=== PATIENT | female | born 1940 | race African-American/Black ===

== ENCOUNTER 2016-11-28 23:03 | Emergency (ER) | payer OTHER, BC ==
[2016-11-28 23:22] VITALS: TEMP 97.6; BMI 29.2
--- NOTE | 2016-11-29 01:19 | PDOC ---
History of Present Illness - General History Source: Patient Exam Limitations: No Limitations - History of Present Illness Initial Comments: 11/29/16 02:58 The patient is a 76-year-old female, with significant past medical history of HTN, gerd, and arthritis, who presents to the ED with 5 hours of left-sided chest pain. The patient states that the pain was a 20/20 when it initially came on but now she rates the pain a 8/10 in severity. She describes the pain as sharp in sensation. On exam, the pain is reproducible and worsened with movement. The patient saw her Inspector And Sorter, Dr. Sotelo, last month and everything appeared to be normal. She is scheduled for a stress test on 12/17. Last stress test was done a few years ago. She denies any shortness of breath. She denies any fever, chills, nausea, vomiting, diarrhea, or abdominal pain. PCP: Dr. Maria Fernanda Bateman Inspector And Sorter: Dr. Sotelo Surgical Hx: back surgery for stenosis and herniated discs, bunion surgery. Social Hx: Reports occasional alcohol use. Pt recently quit smoking a year ago. She denies any drug use. Allergies: None <Martha Linares - Last Filed: 11/29/16 03:00> <Bashir Alvarez - Last Filed: 11/29/16 04:37> - General Chief Complaint: Pain Stated Complaint: CHEST PAIN Time Seen by Provider: 11/29/16 01:18 Past History <Martha Linares - Last Filed: 11/29/16 03:00> - Past Medical History Anemia: No Asthma: No Cancer: No Cardiac Disorders: Yes CVA: Yes (NO RESIDUAL SYMPTOMS) COPD: No CHF: Yes Dementia: No Diabetes: No GI Disorders: Yes (GERD, DIVERTICULOSIS, DIVERTICULITIS, HIATAL HERNIA) Disorders: No HTN: Yes Hypercholesterolemia: Yes Kidney Stones: Yes Liver Disease: Yes (HEPATIC CYST) Seizures: No Thyroid Disease: Yes (MULTIPLE NODULES) - Surgical History Abdominal Surgery: Yes Appendectomy: No Cardiac Surgery: No Cholecystectomy: No Lung Surgery: No Neurologic Surgery: Yes (NECK SX) Orthopedic Surgery: Yes (BACK SX FOR SPINAL STENOSIS) - Immunization History Immunization Up to Date: Yes - Psycho/Social/Smoking Cessation Hx Anxiety: No Suicidal Ideation: No Smoking History: Former smoker Have you smoked in the past 12 months: No If you are a former smoker, when did you quit?: 40yrs Information on smoking cessation initiated: No Hx Alcohol Use: No Drug/Substance Use Hx: No Substance Use Type: None Hx Substance Use Treatment: No <Bashir Alvarez - Last Filed: 11/29/16 04:37> - Past Medical History Allergies/Adverse Reactions: Allergies Allergy/AdvReac Type Severity Reaction Status Date / Time No Known Drug Allergies Allergy Verified 11/28/16 23:19 Home Medications: Ambulatory Orders Furosemide [Lasix -] 40 mg PO DAILY 06/10/12 Potassium Chloride [K-Dur -] 20 meq PO DAILY 06/10/12 Simvastatin [Zocor -] 10 mg PO HS 06/10/12 Losartan Potassium 50 mg PO DAILY 10/31/14 Amlodipine Besylate 10 mg PO DAILY 03/15/16 Ranitidine [Zantac -] 150 mg PO BID #0 03/15/16 Aspirin [ASA -] 81 mg PO DAILY 07/05/16 Folic Acid/Mv,Fe,Min [One Daily Maximum Tablet] 1 each PO DAILY 07/05/16 Metoprolol Succinate [Toprol Xl] 50 mg PO DAILY 07/05/16 Cholecalciferol (Vitamin D3) [Vitamin D-400] 400 unit PO DAILY 07/08/16 Review of Systems - Review of Systems Able to Perform ROS?: Yes Comments:: 11/29/16 03:00 GENERAL/CONSTITUTIONAL: No fever or chills. No weakness. HEAD, EYES, EARS, NOSE AND THROAT: No change in vision. No ear pain or discharge. No sore throat. CARDIOVASCULAR: +Chest pain. No shortness of breath. RESPIRATORY: No cough, wheezing, or hemoptysis. GASTROINTESTINAL: No nausea, vomiting, diarrhea or constipation. GENITOURINARY: No dysuria, frequency, or change in urination. MUSCULOSKELETAL: No joint or muscle swelling or pain. No neck or back pain. SKIN: No rash NEUROLOGIC: No headache, vertigo, loss of consciousness, or change in strength/ sensation. ENDOCRINE: No increased thirst. No abnormal weight change. HEMATOLOGIC/LYMPHATIC: No anemia, easy bleeding, or history of blood clots. ALLERGIC/IMMUNOLOGIC: No hives or skin allergy. <Martha Linares - Last Filed: 11/29/16 03:00> *Physical Exam - Vital Signs Last Vital Signs Temp Pulse Resp BP Pulse Ox 97.6 F 57 L 20 146/75 97 11/28/16 23:19 11/29/16 01:20 11/29/16 01:20 11/29/16 01:20 11/29/16 01:20 - Physical Exam Comments: 11/29/16 03:02 GENERAL: Awake, alert, and fully oriented, in no acute distress HEAD: No signs of trauma EYES: PERRLA, EOMI, sclera anicteric, conjunctiva clear ENT: Auricles normal inspection, hearing grossly normal, nares patent, oropharynx clear without exudates. Moist mucosa NECK: Normal ROM, supple, no lymphadenopathy, JVD, or masses LUNGS: Breath sounds equal, clear to auscultation bilaterally. No wheezes, and no crackles HEART: Regular rate and rhythm, normal S1 and S2, no murmurs, rubs or gallops. + Chest pain is reproducible. ABDOMEN: Soft, nontender, normoactive bowel sounds. No guarding, no rebound. No masses EXTREMITIES: Normal range of motion, no edema. No clubbing or cyanosis. No cords, erythema, or tenderness NEUROLOGICAL: Cranial nerves II through XII grossly intact. Normal speech, normal gait SKIN: Warm, Dry, normal turgor, no rashes or lesions noted. <Martha Linares - Last Filed: 11/29/16 03:00> - Vital Signs Last Vital Signs Temp Pulse Resp BP Pulse Ox 97.6 F 63 20 136/78 96 11/28/16 23:19 11/28/16 23:19 11/28/16 23:19 11/28/16 23:19 11/28/16 23:19 <Bashir Alvarez - Last Filed: 11/29/16 04:37> ED Treatment Course - LABORATORY CBC & Chemistry Diagram: 11/29/16 02:11 11/29/16 02:11 - ADDITIONAL ORDERS Additional order review: Laboratory Results 11/29/16 02:11 INR 1.14 11/29/16 02:11 RBC 4.78 MCV 71.4 L MCHC 31.4 L RDW 15.8 H MPV 8.2 Neutrophils % 57.7 Lymphocytes % 34.0 Monocytes % 6.1 Eosinophils % 1.6 Basophils % 0.6 - Medications Given in the ED: ED Medications Discontinued Medications Generic Name Dose Route Start Last Admin Trade Name Mary PRN Reason Stop Dose Admin Ketorolac Tromethamine 15 mg 11/29/16 01:54 11/29/16 02:29 Toradol Injection - IVPUSH 11/29/16 01:55 15 mg ONCE ONE Administration <Martha Linares - Last Filed: 11/29/16 03:00> - LABORATORY CBC & Chemistry Diagram: 11/29/16 02:11 11/29/16 02:11 <Bashir Alvarez - Last Filed: 11/29/16 04:37> *DC/Admit/Observation/Transfer - Attestations Scribe Attestion: 11/29/16 03:02 Documentation prepared by Martha Linares, acting as medical imaging technologist for Bashir Alvarez MD. <Martha Linares - Last Filed: 11/29/16 03:00> - Discharge Dispostion Admit: No - Attestations Physician Attestion: 11/29/16 01:18 I, Dr. Bashir Alvarez, attest that this document has been prepared under my direction and personally reviewed by me in its entirety. I further attest, that it accurately reflects all work, treatment, procedures and medical decision -making performed by me. <Bashir Alvarez - Last Filed: 11/29/16 04:37> Diagnosis at time of Disposition: Musculoskeletal pain, Atypical chest pain - Discharge Dispostion Disposition: HOME Condition at time of disposition: Good - Referrals Referrals: Maria Fernanda Machado MD [Primary Care Provider] - - Patient Instructions Printed Discharge Instructions: DI for Atypical Chest Pain Additional Instructions: Tylenol for pain. Return to us if worse or new symptoms. Follow up with your regular doctor next week. Best- Dr. Bashir Alvarez
[2016-11-29 01:21] VITALS: BP 146/75; PULSE 57
[2016-11-29] MEDS ORDERED: KETOROLAC TROMETHAMINE 15 MG/ML VIAL IVPUSH ONE (01:54)
[2016-11-29] MEDS ORDERED: KETOROLAC TROMETHAMINE 15 MG/ML VIAL ONE (02:25)
[2016-11-29 02:29] LABS: BASOPHIL 0.6 % (0-2.0); EOSINOPHIL 1.6 % (0-4.5); MCH 22.4 pg (25.7-33.7); MCHC 31.4 g/dl (32.0-36.0); MEAN CELL VOLUME 71.4 fl (80-96); MEAN PLT VOLUME 8.2 fl (7.5-11.1); NEUTROPHILS 57.7 % (42.8-82.8); PLATELET COUNT 207 K/MM3 (134-434); RDW 15.8 % (11.6-15.6); WHITE BLOOD COUNT 5.7 K/mm3 (4.0-10.0)
[2016-11-29 02:48] LABS: INR 1.14 (0.82-1.09); PROTHROMBIN TIME (PATIENT) 12.6 SEC (9.98-11.88)
[2016-11-29 02:59] LABS: ALBUMIN 3.7 g/dl (3.4-5.0); ANION GAP 8 (8-16); CALCIUM 9.1 mg/dL (8.5-10.1); CO2 29 mmol/L (21-32); CREATININE 0.9 mg/dL (0.55-1.02); GLUCOSE,RANDOM 98 mg/dL (74-106); SGOT/AST 8 U/L (15-37); SGPT/ALT 16 U/L (12-78)
[2016-11-29 03:03] LABS: ALK PHOS 123 U/L (45-117); BILIRUBIN,TOTAL 0.5 mg/dL (0.2-1.0); CPK 67 IU/L (26-192); TOT PROT 7.1 g/dl (6.4-8.2); TROPONIN I < 0.02 ng/ml (0.00-0.05)
--- NOTE | 2016-11-30 08:17 | EKG ---
Test Reason : Blood Pressure : / mmHG Vent. Rate : 062 BPM Atrial Rate : 062 BPM P-R Int : 178 ms QRS Dur : 080 ms QT Int : 416 ms P-R-T Axes : 050 -04 -05 degrees QTc Int : 422 ms NORMAL SINUS RHYTHM NORMAL ECG WHEN COMPARED WITH ECG OF 03-JAN-2016 12:44, NONSPECIFIC T WAVE ABNORMALITY, WORSE IN ANTERIOR LEADS Confirmed by HAL VALADEZ, SERG ([id number]) on 11/30/2016 8:17:28 AM Referred By: Confirmed By:SERG HONG MD
== END 2016-11-29 04:55 | disposition home or self-care (01) ==
LOC: JER 23:03
PROC: 3E0333Z Introduction of Anti-inflammatory into Peripheral Vein, Percutaneous Approach (ICD-10-PCS; principal; 2016-11-28)
DX: R07.89 Other chest pain (principal); M79.1 Myalgia; I10 Essential (primary) hypertension; K21.9 Gastro-esophageal reflux disease without esophagitis; E78.00 Pure hypercholesterolemia, unspecified; I50.9 Heart failure, unspecified; Z87.891 Personal history of nicotine dependence
CPT/HCPCS: 36415; 71010-TC; 80053; 84484; 85025; 85610; 93005; 93010; 99283-25

== ENCOUNTER 2017-03-26 06:14 | Day surgery (SDC) | payer OTHER, BC ==
[2017-03-25 11:05] VITALS: BMI 29.2
[2017-03-26 06:47] VITALS: TEMP 98.1
[2017-03-26] MEDS ORDERED: BUPIVACAINE HCL/PF 0.5% (5MG/ML) 10 ML VIAL ONE (07:33)
[2017-03-26] MEDS ORDERED: LIDOCAINE HCL 1%, 10 MG/ML (20ML VIAL) ONE (07:33)
[2017-03-26] MEDS ORDERED: BUPIVACAINE HCL/PF 0.5% (5MG/ML) 10 ML VIAL IJ ONE ×2 (07:51→08:29)
[2017-03-26] MEDS ORDERED: PROPOFOL 20 ML ONE ×2 (08:00)
[2017-03-26] MEDS ORDERED: MIDAZOLAM HCL 2 MG/2 ML SINGLE DOSE VIAL ONE (08:00)
[2017-03-26] MEDS ORDERED: ceFAZolin SODIUM 1 GM VIAL ONE (08:23)
[2017-03-26] MEDS ORDERED: ceFAZolin SODIUM 1 GM VIAL IVPB ONE (08:26)
--- NOTE | 2017-03-26 08:51 | OP ---
Operative Note - Note: Operative Date: 03/26/17 Pre-Operative Diagnosis: right CTS, tenosynovitis Operation: right CTR, tenosynovectomy Post-Operative Diagnosis: Same as Pre-op Surgeon: Magen Chatman Anesthesiologist/EXPEDITIONARY FIGHTING VEHICLE CREWMAN: Ellyn Cornejo Anesthesia: Local, MAC Specimens Removed: tenosynovium Estimated Blood Loss (mls): 0 Drains, Volume Out (mls): 0 Blood Volume Replaced (mls): 0 Fluid Volume Replaced (mls): 1,000 Operative Report Dictated: Yes
--- NOTE | 2017-03-26 09:26 | HP ---
Satellite [facility] - Chief Complaint Chief Complaint: right hand pain/numbness - Past Medical History Allergies/Adverse Reactions: Allergies Allergy/AdvReac Type Severity Reaction Status Date / Time No Known Drug Allergies Allergy Verified 03/25/17 11:11 - Current Medications Current Medications: Home Medications Medication Instructions Recorded Furosemide [Lasix -] 40 mg PO DAILY 06/10/12 Potassium Chloride [K-Dur -] 20 meq PO DAILY 06/10/12 Simvastatin [Zocor -] 10 mg PO HS 06/10/12 Amlodipine Besylate 10 mg PO DAILY 03/15/16 Ranitidine [Zantac -] 150 mg PO BID #0 03/15/16 Aspirin [ASA -] 81 mg PO DAILY 07/05/16 Folic Acid/Mv,Fe,Min [One Daily 1 each PO DAILY 07/05/16 Maximum Tablet] Metoprolol Succinate [Toprol Xl] 50 mg PO DAILY 07/05/16 Cholecalciferol (Vitamin D3) 400 unit PO DAILY 07/08/16 [Vitamin D-400] Losartan Potassium [Cozaar -] 50 mg PO DAILY 03/25/17 Hydrocodone/Acetaminophen [[place] 1 each PO Q6H PRN #20 tablet MDD 4 03/26/17 5-325 Tablet] Satellite Physical Exam - Physical Examination Vital Signs: Vital Signs Period Temp Pulse Resp BP Sys/Youngblood Pulse Ox Last 24 Hr 98.1 F 65 18 117/60 99 General Appearance: Well Nourished, Well Developed, Alert & Oriented x3 ENT: Clear Lung: Normal air movement Heart: Regular rate & rhythm Extremities: Other (right hand- + tinels, + phalens emg + cts) Neurological: Intact, Alert, Oriented Satellite Impression/Plan - Impression/Plan Impression: right cts Operative Procedure: right ctr Date to be Performed: 03/26/17
--- NOTE | 2017-03-26 09:28 | SPEC ---
DATE OF OPERATION: 03/26/2017 PREOPERATIVE DIAGNOSIS: Right carpal tunnel syndrome and tenosynovitis. POSTOPERATIVE DIAGNOSIS: Right carpal tunnel syndrome and tenosynovitis. PROCEDURE: Right carpal tunnel release and tenosynovectomy. SURGEON: Magen Chatman M.D. ASSISTANTS: None. ANESTHESIOLOGIST: Ellyn Cornejo MD ANESTHESIA: MAC anesthesia, local injection with 12 mL of 0.5% Marcaine and 1% Lidocaine mixed DRAINS: None. COMPLICATIONS: None. SPECIMENS: Tenosynovium, right wrist. BLOOD LOSS: None. BLOOD GIVEN: None. FLUID REPLACEMENT: 1000 mL of Plasmalyte. INDICATIONS: This patient is a 76-year-old female with a preoperative diagnosis of right carpal tunnel syndrome and tenosynovitis. After understanding the potential risks, complications, alternatives and benefits of surgery versus nonsurgical treatment, the patient elected to undergo this procedure. DESCRIPTION OF PROCEDURE: The patient was brought to the operating room, peripheral IV placed and intravenous sedation was given. One gram of intravenous Ancef was given. MAC anesthesia was induced. A tourniquet was applied to the right upper arm and the right upper extremity was prepped and draped in sterile fashion. The entire case was done under 3.8 loupe magnification. A marking pen was utilized to brice out a longitudinal incision in an already existing skin crease. Twenty mL of 0.5% Marcaine mixed with 1% Lidocaine was injected in and around the surgical incision. The right upper extremity was elevated, exsanguinated with an Esmarch bandage and the tourniquet inflated to 250 mmHg. A No. 15 scalpel blade was utilized to cut down through the skin. Subcutaneous hemostasis was achieved with the bipolar cautery. Dissection was done through the superficial palmar fascia. Self-retaining retractors were placed into the wound. Under direct visualization, the transverse carpal ligament was transected with a No. 15 scalpel blade, exposing the median nerve and the contents of the carpal tunnel. The distal and proximal extents of the release were completed with a Littler scissor and checked with irrigation and my small finger. They were seen to be complete. Limited dissection was done on the radial side of the median nerve and more extensive dissection was done on the ulnar side of the median nerve. The patients nerve was seen to be quite compressed by epineurium and therefore a limited epineurotomy was performed. A Ragnell retractor was used to gently retract the median nerve in a radial direction. The patient had a lot of tenosynovitis and therefore a tenosynovectomy was performed off all 9 flexor tendons. This was passed off the field as tenosynovium right wrist. The floor of the carpal tunnel was checked. There were no abnormal masses or ganglion cysts. The area was copiously irrigated and washed out and closure begun. Undyed 4-0 Vicryl was used to close the deep dermal layer. Final skin reapproximation was done with horizontal mattress 4-0 nylon sutures. The area was then washed and dried, covered with Xeroform, 4x4s, fluffs between the fingers, Webril and a 4-inch plaster roll was utilized to make a volar splint, which was then wrapped with Giacomo and Coban. The tourniquet was taken down after a total tourniquet time of 15 minutes. There were no complications during the case. The patient tolerated the procedure well and was brought to the ambulatory recovery room in stable condition. Chinmay [id number]
[2017-03-26 12:29] VITALS: BP 133/66; PULSE 62
--- NOTE | 2017-03-28 10:01 | PATH ---
Surgical Pathology Report Patient Name: HERNANDEZ RONQUILLO [facility]. Rec. #: [id number] /Age/Gender: 1940 (Age: 76) / F Account: [id number] Location: [facility] Taken: 03/26/2017 Received: 03/26/2017 Reported: 03/28/2017 Physicians: Magen Chatman M.D. Specimen(s) Received RIGHT WRIST TENOSYNOVIUM Clinical History Preoperative diagnosis: Right carpal tunnel syndrome Final Diagnosis SOFT TISSUE, RIGHT WRIST, CARPAL TUNNEL RELEASE: TENOSYNOVIUM. Electronically Signed Hong Adam M.D. Gross Description Received in formalin labeled "right wrist tenosynovium," is a 1.6 x 1.3 x 0.3 cm aggregate of multiple mohan-yellow, irregular portions of soft tissue, consistent with tenosynovium. The specimen is submitted in toto in one cassette. 03/26/201703/26/2017
== END 2017-03-26 10:15 | disposition home or self-care (01) ==
LOC: JASU-SURG 06:14
PROVIDERS: ATTEND Orthopaedic Surgery
PROC: 0LB50ZZ Excision of Right Lower Arm and Wrist Tendon, Open Approach (ICD-10-PCS; 2017-03-26)
PROC: 01N50ZZ Release Median Nerve, Open Approach (ICD-10-PCS; principal; 2017-03-26 08:00)
DX: G56.01 Carpal tunnel syndrome, right upper limb (principal); M65.831 Other synovitis and tenosynovitis, right forearm
CPT/HCPCS: 88304-TC

== ENCOUNTER 2017-07-01 13:03 | Day surgery (SDC) | payer OTHER, BC ==
[2017-06-30 08:04] VITALS: BMI 28.3
[2017-07-01] MEDS ORDERED: MIDAZOLAM HCL 2 MG/2 ML SINGLE DOSE VIAL ONE ×2 (13:58→15:03)
[2017-07-01] MEDS ORDERED: PROPOFOL 20 ML ONE (13:58)
[2017-07-01] MEDS ORDERED: ceFAZolin SODIUM 1 GM VIAL IVPB ONE (15:00)
[2017-07-01] MEDS ORDERED: ceFAZolin SODIUM 1 GM VIAL ONE (15:08)
[2017-07-01] MEDS ORDERED: BUPIVACAINE HCL/PF 0.5% (5MG/ML) 10 ML VIAL IJ ONE (15:15)
[2017-07-01] MEDS ORDERED: LIDOCAINE 1% P/F 10 MG/ML VIAL INF ONE (15:15)
--- NOTE | 2017-07-01 15:32 | HP ---
Satellite [facility] - Chief Complaint Chief Complaint: left hand pain, numbness History of Present Illness: left CTS History Source: Patient Limitations to Obtaining History: No Limitations - Past Medical History Allergies/Adverse Reactions: Allergies Allergy/AdvReac Type Severity Reaction Status Date / Time No Known Drug Allergies Allergy Verified 07/01/17 13:39 - Current Medications Current Medications: Home Medications Medication Instructions Recorded Furosemide [Lasix -] 40 mg PO DAILY 06/10/12 Potassium Chloride [K-Dur -] 20 meq PO DAILY 06/10/12 Simvastatin [Zocor -] 10 mg PO HS 06/10/12 Amlodipine Besylate 5 mg PO DAILY 03/15/16 Aspirin [ASA -] 162 mg PO DAILY 07/05/16 Folic Acid/Multivit,Iron,Senior Microstrategy Developer 1 each PO DAILY 07/05/16 [One Daily Maximum Tablet] Metoprolol Succinate [Toprol Xl] 50 mg PO DAILY 07/05/16 Cholecalciferol (Vitamin D3) 400 unit PO DAILY 07/08/16 [Vitamin D-400] Losartan Potassium [Cozaar -] 50 mg PO DAILY 03/25/17 Ranitidine [Zantac -] 150 mg PO DAILY 06/30/17 Satellite Physical Exam - Physical Examination Vital Signs: Vital Signs Period Temp Pulse Resp BP Sys/Youngblood Pulse Ox Last 24 Hr 98.2 F 69 16 106/51 98 General Appearance: Well Nourished ENT: Clear Lung: Clear to auscultation Heart: Regular rate & rhythm Breasts: Soft Abdomen: Soft Extremities: No edema Satellite Impression/Plan - Impression/Plan Impression: left CTS Operative Procedure: left CTR Date to be Performed: 07/01/17
--- NOTE | 2017-07-01 15:33 | OP ---
Operative Note - Note: Operative Date: 07/01/17 Pre-Operative Diagnosis: left CTS Operation: left CTR Post-Operative Diagnosis: Same as Pre-op Surgeon: Magen Chatman Anesthesiologist/CAFETERIA MONITOR: Geraldine Mackey Anesthesia: General, Local, MAC Specimens Removed: tenosynovium Estimated Blood Loss (mls): 0 Drains, Volume Out (mls): 0 Blood Volume Replaced (mls): 0 Fluid Volume Replaced (mls): 500 Operative Report Dictated: Yes
[2017-07-01] MEDS ORDERED: ONDANSETRON 4 MG/2 ML VIAL IVPUSH PRN (16:10)
[2017-07-01] MEDS ORDERED: oxyCODONE HCL 5 MG TABLET PO PRN (16:10)
[2017-07-01] MEDS ORDERED: LACTATED RINGERS SOLUTION 1,000 ML IV SCH (16:15)
[2017-07-01 16:56] VITALS: TEMP 97.9
--- NOTE | 2017-07-01 17:24 | SPEC ---
DATE OF OPERATION: 07/01/2017 PREOPERATIVE DIAGNOSIS: Left carpal tunnel syndrome. POSTOPERATIVE DIAGNOSIS: Left carpal tunnel syndrome. PROCEDURE: Left carpal tunnel release and tenosynovectomy. SURGEON: Magen Chatman M.D. SUEDING AND BUFFING MACHINE OPERATOR: ANESTHESIA: MAC anesthesia local injection of 12 mL 0.5% Marcaine, 1% lidocaine mix. DRAINS: None. COMPLICATIONS: None. SPECIMEN: Tenosynovium left wrist. BLOOD LOSS: None. BLOOD GIVEN: None. FLUID REPLACEMENT: 500 mL. INDICATION: The patient is a 77-year-old female with preoperative diagnosis of left carpal tunnel syndrome. After understanding the potential risks, complications, alternatives and benefits of surgery versus nonsurgical treatment, the patient elected to undergo this procedure. DESCRIPTION OF PROCEDURE: The patient was brought to the operating room, peripheral IV placed and intravenous sedation was given. One gram of intravenous Ancef was given. MAC anesthesia was induced. A tourniquet was applied to the left upper arm and the left upper extremity was prepped and draped in sterile fashion. The entire case was done under 3.8 loupe magnification. A marking pen was utilized to brice out a longitudinal incision in an already existing skin crease. Twenty mL of 0.5% Marcaine mixed with 1% Lidocaine was injected in and around the surgical incision. The left upper extremity was elevated, exsanguinated with an Esmarch bandage and the tourniquet inflated to 250 mmHg. A No. 15 scalpel blade was utilized to cut down through the skin. Subcutaneous hemostasis was achieved with the bipolar cautery. Dissection was done through the superficial palmar fascia. Self-retaining retractors were placed into the wound. Under direct visualization, the transverse carpal ligament was transected with a No. 15 scalpel blade, exposing the median nerve and the contents of the carpal tunnel. The distal and proximal extents of the release were completed with a Littler scissor and checked with irrigation and my small finger. They were seen to be complete. Limited dissection was done on the radial side of the median nerve and more extensive dissection was done on the ulnar side of the median nerve. The patients nerve was seen to be quite compressed by epineurium and therefore a limited epineurotomy was performed. A Ragnell retractor was used to gently retract the median nerve in a radial direction. The patient had a lot of tenosynovitis and therefore a tenosynovectomy was performed off all 9 flexor tendons. This was passed off the field as tenosynovium left wrist. The floor of the carpal tunnel was checked. There were no abnormal masses or ganglion cysts. The area was copiously irrigated and washed out and closure begun. Undyed 4-0 Vicryl was used to close the deep dermal layer. Final skin reapproximation was done with horizontal mattress 4-0 nylon sutures. The area was then washed and dried, covered with Xeroform, 4x4s, fluffs between the fingers, Webril and a 4-inch plaster roll was utilized to make a volar splint, which was then wrapped with Giacomo and Coban. The tourniquet was taken down after a total tourniquet time of 15 minutes. There were no complications during the case. The patient tolerated the procedure well and was brought to the ambulatory recovery room in stable condition. Chinmay [id number]
[2017-07-01 17:33] VITALS: BP 132/68; PULSE 64
--- NOTE | 2017-07-03 14:30 | PATH ---
Surgical Pathology Report Patient Name: HERNANDEZ RONQUILLO [facility]. Rec. #: [id number] /Age/Gender: 1940 (Age: 77) / F Account: [id number] Location: [facility] Taken: 07/01/2017 Received: 07/02/2017 Reported: 07/03/2017 Physicians: Magen Chatman M.D. Specimen(s) Received LEFT HAND TENOSYNOVIUM Clinical History Left carpal tunnel syndrome Final Diagnosis TENOSYNOVIUM, HAND, LEFT, CARPAL TUNNEL RELEASE: BENIGN DENSE FIBROCONNECTIVE TISSUE. Electronically Signed Isis Mon M.D. Gross Description Received in formalin labeled "left hand tenosynovium," is a 1.7 x 1.3 x 0.3 cm aggregate of mohan-yellow, irregular portions of soft tissue, consistent with tenosynovium. The specimen is entirely submitted in one cassette. /07/02/201707/02/2017
== END 2017-07-01 17:36 | disposition home or self-care (01) ==
LOC: JASU-SURG 13:03
PROVIDERS: ATTEND Orthopaedic Surgery
PROC: 01N50ZZ Release Median Nerve, Open Approach (ICD-10-PCS; principal; 2017-07-01 14:30)
DX: G56.02 Carpal tunnel syndrome, left upper limb (principal)
CPT/HCPCS: 88304-TC

== ENCOUNTER 2017-12-23 00:49 | Observation (INO) | payer OTHER, BC ==
[2017-12-23] MEDS ORDERED: PANTOPRAZOLE SODIUM 40 MG in SODIUM CHLORIDE 100 ML IVPB ONE (01:46)
--- NOTE | 2017-12-23 01:49 | PDOC ---
Attending Attestation - HPI HPI: 12/23/17 02:07 The patient is a 77 year old female with a significant PMH of HTN, GERD, and arthritis presenting with chest pain since 10:30PM tonight. Patient describes the chest pain as sharp, localized in the sternum and epigastric region, nonradiating. Patient denies any alleviating or exacerbating factors. Patient states she had similar symptoms two days ago. Patient is also complaining of significant left leg swelling compared to the right. The patient denies shortness of breath, headache and dizziness. Denies fever, chills, nausea, vomit, diarrhea and constipation. Denies dysuria, frequency, urgency and hematuria. Allergies: NKA Past surgical history: BACK SX FOR SPINAL STENOSIS, abdominal surgery Social history: No reported alcohol, drug, or cigarette use. PCP: Dr. Machado HTN, GERD, and arthritis <Marta Hughes - Last Filed: 12/23/17 02:07> - Resident Resident Name: Tejas Mcgrath - ED Attending Attestation I have performed the following: I have examined & evaluated the patient, The case was reviewed & discussed with the resident, I agree w/resident's findings & plan, Exceptions are as noted - Physicial Exam PE: 12/23/17 19:29 *Physical Exam General Appearance: Yes: Appropriately Dressed. No: Apparent Distress, Intoxicated HEENT: positive: EOMI, IJEOMA, Normal ENT Inspection, Normal Voice, TMs Normal, Pharynx Normal. negative: Pale Conjunctivae, Photophobia, Scleral Icterus (R), Scleral Icterus (L) Neck: positive: Trachea midline, Normal Thyroid, Supple. negative: Tender, Rigid, Carotid bruit, Stridor, Lymphadenopathy (R), Lymphadenopathy (L), Thyromegaly Respiratory/Chest: positive: Lungs Clear, Normal Breath Sounds. negative: Chest Tender, Respiratory Distress, Accessory Muscle Use, Labored Respiration, RES, Crackles, Rales, Rhonchi, Stridor, Wheezing, Dullness Cardiovascular: positive: Regular Rhythm, Regular Rate, S1, S2. negative: Edema , JVD, Murmur, Bradycardia, Tachycardia Vascular Pulses: Dorsalis-Pedis (R): 2+, Doralis-Pedis (L): 2+ Gastrointestinal/Abdominal: positive: Normal Bowel Sounds, Flat, Soft. negative : Tender, Organomegaly, Pulsatile Mass, Increased Bowel Sounds, Decreased BS, Distended, Guarding, Rebound, Hernia, Hepatomegaly, Spleenomegaly Lymphatic: negative: Adenopathy, Tenderness Musculoskeletal: positive: Normal Inspection. negative: CVA Tenderness, Decreased Range of Motion Extremity: positive: Normal Capillary Refill, Normal Inspection, Normal Range of Motion, Pelvis Stable. negative: Tender, Pedal Edema, Swelling, Erythema Integumentary: positive: Normal Color, Dry, Warm. negative: Cyanotic, Erythema , Jaundice, Rash Neurologic: positive: transit mixer driver II-XII NML intact, Fully Oriented, Alert, Normal Mood/ Affect, Motor Strength 5/5. negative: EOM Palsy, Facial Droop, Sensory Deficit - Medical Decision Making 12/23/17 19:29 Pt admitted for further evaluation and care <Miguel Angel Castro - Last Filed: 12/23/17 19:30>
[2017-12-23] MEDS ORDERED: PANTOPRAZOLE SODIUM 40 MG/100 ML BAG IVPB ONE (01:59)
[2017-12-23 02:07] LABS: BASO % 0.5 % (0-2.0); EOS % 1.9 % (0-4.5); HEMATOCRIT 34.6 % (32.4-45.2); HEMOGLOBIN 11.1 GM/dL (10.7-15.3); LYMPH % 38.2 % (8-40); MCH 22.9 pg (25.7-33.7); MCHC 31.9 g/dl (32.0-36.0); MEAN CELL VOLUME 71.7 fl (80-96); MEAN PLT VOLUME 8.1 fl (7.5-11.1); MONO % 5.3 % (3.8-10.2); NEUT % 54.1 % (42.8-82.8); PLATELET COUNT 235 K/MM3 (134-434); RBC 4.83 M/mm3 (3.60-5.2); WHITE BLOOD COUNT 5.7 K/mm3 (4.0-10.0)
--- NOTE | 2017-12-23 02:07 | PDOC ---
History of Present Illness - General Chief Complaint: Chest Pain Stated Complaint: CHEST PAIN Time Seen by Provider: 12/23/17 01:32 History Source: Patient Exam Limitations: No Limitations - History of Present Illness Initial Comments: 12/23/17 01:53 The patient is a 77F with a PMH of HTN and GERD who presents to the ER with complaints of CP. The patient states that she developed retrosternal/epigastric gradual onset, sharp pain which did not radiate and is not associated with SOB, nausea, vomiting, diaphoresis, or weakness. She denies eating food before laying down. She was laying down when the pain started. She admits to a similar pain which occurred 3 days ago and went away on its own. Past History - Past Medical History Allergies/Adverse Reactions: Allergies Allergy/AdvReac Type Severity Reaction Status Date / Time No Known Drug Allergies Allergy Verified 12/23/17 00:58 Home Medications: Ambulatory Orders Furosemide [Lasix -] 40 mg PO DAILY 06/10/12 Potassium Chloride [K-Dur -] 20 meq PO DAILY 06/10/12 Simvastatin [Zocor -] 10 mg PO HS 06/10/12 Amlodipine Besylate 5 mg PO DAILY 03/15/16 Aspirin [ASA -] 162 mg PO DAILY 07/05/16 Folic Acid/Multivit,Iron,Assistant Health Educator [One Daily Maximum Tablet] 1 each PO DAILY Metoprolol Succinate [Toprol Xl] 50 mg PO DAILY 07/05/16 Cholecalciferol (Vitamin D3) [Vitamin D-400] 400 unit PO DAILY 07/08/16 Losartan Potassium [Cozaar -] 50 mg PO DAILY 03/25/17 Ranitidine [Zantac -] 150 mg PO DAILY 06/30/17 Hydrocodone/Acetaminophen [Vicodin 5-300 mg Tablet] 1 - 2 tab PO TID PRN #30 tablet MDD 6 07/01/17 Anemia: No Asthma: No Cancer: No Cardiac Disorders: Yes (ENLARGED HEART) CVA: Yes (NO RESIDUAL SYMPTOMS-5YRS AGO) COPD: No CHF: No Dementia: No Diabetes: No GI Disorders: Yes (GERD, DIVERTICULOSIS, DIVERTICULITIS, HIATAL HERNIA) Disorders: Yes (KIDNEY STONES) HTN: Yes Hypercholesterolemia: Yes Kidney Stones: Yes Liver Disease: Yes (HEPATIC CYST) Seizures: No Thyroid Disease: Yes (MULTIPLE NODULES) - Surgical History Abdominal Surgery: No Appendectomy: No Cardiac Surgery: No Cholecystectomy: No Lung Surgery: No Neurologic Surgery: Yes (NECK SX lumbar) Orthopedic Surgery: Yes (BACK SX FOR SPINAL STENOSIS) - Immunization History Immunization Up to Date: Yes - Suicide/Smoking/Psychosocial Hx Smoking History: Never smoked Have you smoked in the past 12 months: No If you are a former smoker, when did you quit?: 40yrs Information on smoking cessation initiated: No Hx Alcohol Use: No Drug/Substance Use Hx: No Substance Use Type: Alcohol Hx Substance Use Treatment: No Review of Systems - Review of Systems Able to Perform ROS?: Yes Comments:: 12/23/17 02:07 GENERAL/CONSTITUTIONAL: No fever or chills. No weakness. HEAD, EYES, EARS, NOSE AND THROAT: No change in vision. No ear pain or discharge. No sore throat. CARDIOVASCULAR: Positive for resolved chest pain. No palpitations or lightheadedness. RESPIRATORY: No cough, wheezing, shortness of breath, or hemoptysis. GASTROINTESTINAL: No nausea, vomiting, diarrhea, constipation, or abdominal pain. GENITOURINARY: No dysuria, frequency, hematuria, or change in urination. MUSCULOSKELETAL: No joint or muscle swelling or pain. No neck or back pain. SKIN: No rash or lesions. NEUROLOGIC: No headache, numbness, tingling, weakness, loss of consciousness, or change in strength/sensation. ENDOCRINE: No increased thirst. No abnormal weight change. HEMATOLOGIC/LYMPHATIC: No anemia, easy bleeding, or history of blood clots. ALLERGIC/IMMUNOLOGIC: No hives or skin allergy. Is the patient limited Turkish proficient: No *Physical Exam - Vital Signs Last Vital Signs Temp Pulse Resp BP Pulse Ox 97.5 F L 60 20 126/76 96 12/23/17 00:58 12/23/17 00:58 12/23/17 00:58 12/23/17 00:58 12/23/17 00:58 - Physical Exam Comments: 12/23/17 02:08 GENERAL: Well developed, well nourished. Awake and alert. No acute distress. HEENT: Normocephalic, atraumatic. Hearing grossly normal. Moist mucous membranes. PERRLA, EOMI. No conjunctival pallor. Sclera are non-icteric. NECK: Supple. Full ROM. No JVD. CARDIOVASCULAR: Regular rate and rhythm. No murmurs, rubs, or gallops. No reproducible chest wall tenderness. PULMONARY: No evidence of respiratory distress. Lungs clear to auscultation bilaterally. No wheezing, rales or rhonchi. ABDOMINAL: Soft. Non-tender. Non-distended. No rebound or guarding. GENITOURINARY: No CVA tenderness bilaterally. MUSCULOSKELETAL: Swelling in L LE without tenderness. Normal range of motion at all joints. No bony deformities or tenderness. EXTREMITIES: No cyanosis. No clubbing. No edema. SKIN: Warm and dry. Normal capillary refill. No rashes. No jaundice. NEUROLOGICAL: Alert, awake, appropriate. Cranial nerves 2-12 intact. Normal speech. Gait is normal without ataxia. PSYCHIATRIC: Cooperative. Good eye contact. Appropriate mood and affect. Heart Score/ECG Review - History History: Slightly suspicious - Electrocardiogram EKG: Non specific repolarization disturbance - Age Age: >/= 65 - Risk Factors Risk Factors Heart Score: Yes Hx Hypertension Based on the list above the patient has:: 1-2 risk factors - Troponin Troponin: </= normal limit - Score Heart Score - Total: 4 #1 ECG reviewed & interpreted by me at: 02:09 General ECG Interpretation: Sinus Rhythm, Normal Rate, Normal Intervals, No acute ischemic changes Compared to previous ECG there are: No significant change 12/23/17 02:09 NSR vent rate 60 FL 184 QRS 82 QTc 426 No YASMINE. Sub 1mm STD in III and aVF Unchanged from previous. ED Treatment Course - LABORATORY CBC & Chemistry Diagram: 12/23/17 01:59 12/23/17 01:59 - RADIOLOGY Radiology Studies Ordered: Category Date Time Status CHEST X-RAY PORTABLE* [RAD] Stat Radiology 12/23/17 01:39 Ordered DUPLEX VASCUL US-1 LEG [US] Stat Ultrasound 12/23/17 01:39 Ordered Medical Decision Making - Medical Decision Making 12/23/17 02:13 The patient is a 77F with a PMH of HTN and GERD who presents to the ER with resolved CP. Concern for ACS vs (low suspicion) PE, but pt's L leg is appreciably swollen. Pending labs and imaging. HEART score of 4 and will likely require admission for observation. 12/23/17 04:39 CBC, CMP, trop negative. EKG WNL. Will admit for ACS workup. I have endorsed the pt to Dr. Garcia. *DC/Admit/Observation/Transfer Diagnosis at time of Disposition: Atypical chest pain Chest pain Qualifiers: Chest pain type: unspecified Qualified Code(s): R07.9 - Chest pain, unspecified - Discharge Dispostion Condition at time of disposition: Guarded Decision to Admit order: Yes - Referrals Referrals: Maria Fernanda Machado MD [Primary Care Provider] - - Patient Instructions - Post Discharge Activity
[2017-12-23 02:19] LABS: INR 1.1 (0.83-1.09); PROTHROMBIN TIME (PATIENT) 12.4 SEC (9.7-13.0)
[2017-12-23 02:27] LABS: ALBUMIN 3.7 g/dl (3.4-5.0); ANION GAP 6 MMOL/L (8-16); BILIRUBIN,TOTAL 0.2 mg/dL (0.2-1.0); BLOOD UREA NITROGEN 14 mg/dL (7-18); CALCIUM 8.8 mg/dL (8.5-10.1); CHLORIDE 105 mmol/L (98-107); CO2 30 mmol/L (21-32); GLUCOSE,RANDOM 91 mg/dL (74-106); LIPASE 115 U/L (73-393); POTASSIUM 3.7 mmol/L (3.5-5.1); SGOT/AST 11 U/L (15-37); SGPT/ALT 12 U/L (12-78); SODIUM 141 mmol/L (136-145); TOT PROT 7.3 g/dl (6.4-8.2)
[2017-12-23 02:30] LABS: ALK PHOS 117 U/L (45-117)
--- NOTE | 2017-12-23 05:51 | PN ---
Teaching Attending Note Name of Resident: Robby Garcia ATTENDING PHYSICIAN STATEMENT I saw and evaluated the patient. I reviewed the resident's note and discussed the case with the resident. I agree with the resident's findings and plan as documented. SUBJECTIVE: Patient is a 77 year old woman with a significant PMH of HTN, GERD, back surgery for spinal stenosis, abdominal surgery and arthritis presenting with chest pain since 10:30PM tonight. Patient describes the chest pain as sharp, localized in the sternum and epigastric region, nonradiating. Patient denies any alleviating or exacerbating factors. Patient states she had similar symptoms two days ago. Patient is also complaining of significant left leg swelling compared to the right. She recently had a cardiac stress test which was negative. OBJECTIVE: Alert Vital Signs Period Temp Pulse Resp BP Sys/Youngblood Pulse Ox Last 24 Hr 97.5 F-98.1 F 56-60 16-20 126-130/66-76 96-96 HEENT: No Jaundice, eye redness or discharge, PERRLA, EOMI. Normocephalic, atraumatic. External ears are normal and hearing is grossly intact. No nasal discharge. Neck: Supple, nontender. No palpable adenopathy or thyromegaly. No JVD Chest: Good effort. Clear to auscultation and percussion. Heart: Regular. No S3, rub or murmur Abdomen: Not distended, soft, nontender and no HSM. No rebound or guarding. Normoactive bowel sounds. Ext: Peripheral pulses intact. No leg edema. Skin: Warm and dry. No petechiae, rash or ecchymosis. Neuro: Alert. Oriented x3. CN 2-12 grossly intact. Sensation grossly intact in all four extremities and DTR are symmetric. Home Medications Medication Instructions Recorded Furosemide [Lasix -] 40 mg PO DAILY 06/10/12 Potassium Chloride [K-Dur -] 20 meq PO DAILY 06/10/12 Simvastatin [Zocor -] 10 mg PO HS 06/10/12 Amlodipine Besylate 5 mg PO DAILY 03/15/16 Aspirin [ASA -] 162 mg PO DAILY 07/05/16 Folic Acid/Multivit,Iron,Slip Dumper 1 each PO DAILY 07/05/16 [One Daily Maximum Tablet] Metoprolol Succinate [Toprol Xl] 50 mg PO DAILY 07/05/16 Cholecalciferol (Vitamin D3) 400 unit PO DAILY 07/08/16 [Vitamin D-400] Losartan Potassium [Cozaar -] 50 mg PO DAILY 03/25/17 Ranitidine [Zantac -] 150 mg PO DAILY 06/30/17 Hydrocodone/Acetaminophen [Vicodin 1 - 2 tab PO TID PRN #30 tablet 07/01/17 5-300 mg Tablet] MDD 6 Abnormal Lab Results 12/23/17 12/23/17 12/23/17 01:59 01:59 01:59 MCV 71.7 L MCH 22.9 L MCHC 31.9 L RDW 16.0 H INR 1.10 H Anion Gap 6 L AST 11 L ASSESSMENT AND PLAN: 1. Chest pain - Has nonspecific t wave inversion in V4 but troponin is negative. Admit to telemetry to rule out ACS. Now painfree. Get ECHO, fasting lipid profile and consult cardiology. 2. DVT prophylaxis - Lovenox 40 mg SQ q 24 hours. 3. Advance directives - Full code
--- NOTE | 2017-12-23 06:29 | HP ---
CHIEF COMPLAINT: Chest pain PCP: Dr. Machado, [facility] HISTORY OF PRESENT ILLNESS: The patient is a 77 yo f w/ PMH HTN, GERD who presented to the ED c/o substernat chest pain for the past day. The patient states that at approx. 11 pm this evening, she experienced a gradual onset of sharp, nonradiating retrosternal chest pain while she was laying in bed. The episode lasted approx 10 seconds before resolving spontaneously. The patient had a similar episode 3 days ago which also resolved spontaneously. The patient follows with Dr. Sotelo every 6 months and had a recent negatove stress test. Patient denies current chest pain, SOB, abdominal pain. ER course was notable for: (1) EKG unchanged from previous (2) trop negative x1 (3) Recent Travel: none PAST MEDICAL HISTORY: see HPI PAST SURGICAL HISTORY: Lumbar spine surgery, Spinal stenosis surgery many years ago Social History: Smoking: former smoker, quit 40 years ago Alcohol: denies Drugs: denies Family History: non-contributory Allergies No Known Drug Allergies Allergy (Verified 12/23/17 00:58) HOME MEDICATIONS: Home Medications Medication Instructions Recorded Furosemide [Lasix -] 40 mg PO DAILY 06/10/12 Potassium Chloride [K-Dur -] 20 meq PO DAILY 06/10/12 Simvastatin [Zocor -] 10 mg PO HS 06/10/12 Amlodipine Besylate 5 mg PO DAILY 03/15/16 Aspirin [ASA -] 162 mg PO DAILY 07/05/16 Folic Acid/Multivit,Iron,[place] 1 each PO DAILY 07/05/16 [One Daily Maximum Tablet] Metoprolol Succinate [Toprol Xl] 50 mg PO DAILY 07/05/16 Cholecalciferol (Vitamin D3) 400 unit PO DAILY 07/08/16 [Vitamin D-400] Losartan Potassium [Cozaar -] 50 mg PO DAILY 03/25/17 Ranitidine [Zantac -] 150 mg PO DAILY 06/30/17 Hydrocodone/Acetaminophen [Vicodin 1 - 2 tab PO TID PRN #30 tablet 07/01/17 5-300 mg Tablet] MDD 6 REVIEW OF SYSTEMS CONSTITUTIONAL: Absent: fever, chills, diaphoresis, generalized weakness, malaise, loss of appetite, weight change HEENT: Absent: rhinorrhea, nasal congestion, throat pain, throat swelling, difficulty swallowing, mouth swelling, ear pain, eye pain, visual changes CARDIOVASCULAR: Absent: syncope, palpitations, irregular heart rate, lightheadedness, peripheral edema RESPIRATORY: Absent: cough, shortness of breath, dyspnea with exertion, orthopnea, wheezing, stridor, hemoptysis GASTROINTESTINAL: Absent: abdominal pain, abdominal distension, nausea, vomiting, diarrhea, constipation, melena, hematochezia GENITOURINARY: Absent: dysuria, frequency, urgency, hesitancy, hematuria, flank pain, genital pain MUSCULOSKELETAL: Absent: myalgia, arthralgia, joint swelling, back pain, neck pain SKIN: Absent: rash, itching, pallor HEMATOLOGIC/IMMUNOLOGIC: Absent: easy bleeding, easy bruising, lymphadenopathy, frequent infections ENDOCRINE: Absent: unexplained weight gain, unexplained weight loss, heat intolerance, cold intolerance NEUROLOGIC: Absent: headache, focal weakness or paresthesias, dizziness, unsteady gait, seizure, mental status changes, bladder or bowel incontinence PSYCHIATRIC: Absent: anxiety, depression, suicidal or homicidal ideation, hallucinations. PHYSICAL EXAMINATION Vital Signs - 24 hr 12/23/17 12/23/17 12/23/17 00:58 02:26 05:55 Temperature 97.5 F L 98.1 F 98.1 F Pulse Rate 60 Pulse Rate [ 56 L 63 Left Radial] Respiratory 20 16 16 Rate Blood Pressure 126/76 Blood Pressure 130/66 133/75 [Right Arm] O2 Sat by Pulse 96 96 96 Oximetry (%) GENERAL: Awake, alert, and fully oriented, in no acute distress. HEAD: Normal with no signs of trauma. NECK: Normal range of motion, supple without lymphadenopathy, JVD, or masses. LUNGS: Breath sounds equal, clear to auscultation bilaterally. No wheezes, and no crackles. No accessory muscle use. HEART: Regular rate and rhythm, normal S1 and S2 without murmur, rub or gallop. ABDOMEN: Soft, nontender, not distended, normoactive bowel sounds, no guarding, no rebound, no masses. No hepatomegaly or splenomegaly. LOWER EXTREMITIES: 2+ pulses, warm, well-perfused. No calf tenderness. No peripheral edema. NEUROLOGICAL: Cranial nerves II-X intact. Normal speech. Normal gait. PSYCHIATRIC: Cooperative. Good eye contact. Appropriate mood and affect. SKIN: Warm, dry, normal turgor, no rashes or lesions noted, normal capillary refill. Laboratory Results - last 24 hr 12/23/17 12/23/17 12/23/17 01:59 01:59 01:59 WBC 5.7 RBC 4.83 Hgb 11.1 Hct 34.6 MCV 71.7 L MCH 22.9 L MCHC 31.9 L RDW 16.0 H Plt Count 235 MPV 8.1 Absolute Neuts (auto) 3.1 Neutrophils % 54.1 Lymphocytes % 38.2 Monocytes % 5.3 Eosinophils % 1.9 Basophils % 0.5 Nucleated RBC % 0 PT with INR 12.40 INR 1.10 H Sodium 141 Potassium 3.7 Chloride 105 Carbon Dioxide 30 Anion Gap 6 L BUN 14 Creatinine 1.0 Creat Clearance w eGFR 53.76 Random Glucose 91 Calcium 8.8 Total Bilirubin 0.2 AST 11 L ALT 12 Alkaline Phosphatase 117 Creatine Kinase 69 Troponin I < 0.02 Total Protein 7.3 Albumin 3.7 Lipase 115 ASSESSMENT/PLAN: The patient is a 77 yo f w/ PMH GERD and HTN who comes in c/o self limited chest pain. #Chest pain possibly 2/2 GERD r/o ACS -Trend trop -rpt EKG -Dr. Sotelo consulted -Protonix 40mg daily #FEN -no fluids indicated -lytes WNL -sodium controlled diet #Prophy -no dvt prophy indicated in this observation patient #dispo -admit tele obs, possible discharge after cardio clearance -medications verified with patient. Visit type - Emergency Visit Emergency Visit: Yes ED Registration Date: 12/23/17 Care time: The patient presented to the Emergency Department on the above date and was hospitalized for further evaluation of their emergent condition. - New Patient This patient is new to me today: Yes Date on this admission: 12/23/17 - Critical Care Critical Care patient: No Hospitalist Screening - Colonoscopy Questionnaire Colonoscopy Questionnaire: Colonoscopy Questionnaire - Patient: 50 - 75 years old and never had a screening colonoscopy: Unknown History of colon or rectal polyps, or CA: Unknown History of IBD, Crohn's disease or UC: Unknown History of abdominal radiation therapy as a child: Unknown - Relative: 1 with colon or rectal CA, or polyps at age 60 or younger: Unknown Colon or rectal CA diagnosed at age 45 or younger: Unknown Multiple relatives with colon or rectal CA: Unknown - Outcome: Screening Result: Negative Screen
[2017-12-23 07:42] LABS: INR 1.1 (0.83-1.09); PROTHROMBIN TIME (PATIENT) 12.4 SEC (9.7-13.0)
[2017-12-23 07:45] LABS: HEMATOCRIT 35.1 % (32.4-45.2); MCH 22.6 pg (25.7-33.7); MCHC 31.3 g/dl (32.0-36.0); MEAN CELL VOLUME 72.2 fl (80-96); MEAN PLT VOLUME 8.8 fl (7.5-11.1); PLATELET COUNT 231 K/MM3 (134-434); RBC 4.86 M/mm3 (3.60-5.2); RDW 15.8 % (11.6-15.6)
[2017-12-23 07:58] LABS: ANION GAP 10 MMOL/L (8-16); BLOOD UREA NITROGEN 12 mg/dL (7-18); CALCIUM 8.8 mg/dL (8.5-10.1); CHLORIDE 108 mmol/L (98-107); CO2 26 mmol/L (21-32); CREATININE 0.7 mg/dL (0.55-1.02); GLUCOSE,RANDOM 86 mg/dL (74-106); MAGNESIUM 2.4 mg/dL (1.8-2.4); POTASSIUM 3.6 mmol/L (3.5-5.1); SODIUM 144 mmol/L (136-145)
--- NOTE | 2017-12-23 09:45 | EKG ---
Test Reason : Blood Pressure : / mmHG Vent. Rate : 062 BPM Atrial Rate : 062 BPM P-R Int : 184 ms QRS Dur : 082 ms QT Int : 420 ms P-R-T Axes : 057 001 004 degrees QTc Int : 426 ms NORMAL SINUS RHYTHM NONSPECIFIC ST ABNORMALITY ABNORMAL ECG WHEN COMPARED WITH ECG OF 28-NOV-2016 23:14, NO SIGNIFICANT CHANGE WAS FOUND Confirmed by Cisco Leal MD ([id number]) on 12/23/2017 9:44:51 AM Referred By: Confirmed By:Cisco Leal MD
[2017-12-23 09:48] VITALS: BMI 28.9
--- NOTE | 2017-12-23 09:48 | CON.CARD ---
Consult Consult Specialty:: Cardiology Referred by:: Cherry Reason for Consultation:: chest pain - History of Present Illness Chief Complaint: chest pain History of Present Illness: 77F w/ PMH HTN, GERD p/w chest pain. Started night prior to admission, gradual onset, sharp pain, nonradiating, retrosternal while lying down. lasted 10 sec, resolved. Had prior episode a few days ago that was simialr, resolved. Sees Dr. Sotelo in clinic for similar issue, endorses stress test in the last 6 months , reportedly was negative. Has had history of atypical CP with multiple neg stress tests in the past. Given protonix. Trop neg x 2. - History Source Limitations to Obtaining History: No Limitations - Past Medical History Cardio/Vascular: Yes: HTN Gastrointestinal: Yes: GERD - Alcohol/Substance Use Hx Alcohol Use: No - Smoking History Smoking history: Never smoked Have you smoked in the past 12 months: No If you are a former smoker, when did you quit?: 40yrs Home Medications - Allergies Allergies/Adverse Reactions: Allergies Allergy/AdvReac Type Severity Reaction Status Date / Time No Known Drug Allergies Allergy Verified 12/23/17 00:58 - Home Medications Home Medications: Ambulatory Orders Furosemide [Lasix -] 40 mg PO DAILY 06/10/12 Potassium Chloride [K-Dur -] 20 meq PO DAILY 06/10/12 Simvastatin [Zocor -] 10 mg PO HS 06/10/12 Amlodipine Besylate 5 mg PO DAILY 03/15/16 Aspirin [ASA -] 81 mg PO DAILY 07/05/16 Folic Acid/Multivit,Iron,Regional Environmental Manager [One Daily Maximum Tablet] 1 each PO DAILY Metoprolol Succinate [Toprol Xl] 50 mg PO DAILY 07/05/16 Cholecalciferol (Vitamin D3) [Vitamin D-400] 400 unit PO DAILY 07/08/16 Losartan Potassium [Cozaar -] 50 mg PO DAILY 03/25/17 Ranitidine [Zantac -] 150 mg PO DAILY 06/30/17 Family Disease History - Family Disease History Family History: Unremarkable Review of Systems - Review of Systems Constitutional: reports: No Symptoms Eyes: reports: No Symptoms HENT: reports: No Symptoms Neck: reports: No Symptoms Cardiovascular: reports: Chest Pain Respiratory: reports: No Symptoms Gastrointestinal: reports: No Symptoms Genitourinary: reports: No Symptoms Musculoskeletal: reports: No Symptoms Integumentary: reports: No Symptoms Neurological: reports: No Symptoms Endocrine: reports: No Symptoms Hematology/Lymphatic: reports: No Symptoms Psychiatric: reports: No Symptoms Vital Signs: Vital Signs Temperature 98.1 F 12/23/17 05:55 Pulse Rate 63 12/23/17 05:55 Respiratory Rate 16 12/23/17 05:55 Blood Pressure 133/75 12/23/17 05:55 O2 Sat by Pulse Oximetry (%) 96 12/23/17 05:55 Constitutional: Yes: Well Nourished, No Distress, Calm Eyes: Yes: Conjunctiva Clear, EOM Intact HENT: Yes: Atraumatic, Normocephalic Neck: Yes: Supple, Trachea Midline Respiratory: Yes: Regular, CTA Bilaterally Gastrointestinal: Yes: Normal Bowel Sounds, Soft Renal/: Yes: WNL Cardiovascular: Yes: Regular Rate and Rhythm JVD: No Heart Sounds: Yes: S1, S2 Musculoskeletal: Yes: WNL Extremities: Yes: WNL Edema: No Peripheral Pulses WNL: Yes Peripheral Pulses: 2+ Left Doralis Pedis, 2+ Right Dorsalis Pedis Integumentary: Yes: WNL Neurological: Yes: Alert, Oriented Psychiatric: Yes: Alert, Oriented - Other Data Labs, Other Data: CBC, BMP 12/23/17 06:58 12/23/17 06:58 INR, PTT INR 1.10 (0.83-1.09) H 12/23/17 06:58 Troponin, BNP 12/23/17 12/23/17 01:59 08:30 Troponin I < 0.02 < 0.02 Troponin, BNP 12/23/17 12/23/17 01:59 08:30 Troponin I < 0.02 < 0.02 Assessment/Plan nuc pharm stress 12/2015 no ischemia, nl EF stress echo 01/2017 nonischemic EKG, no echo e/o ischemia EKG: sinus, nonspecific T abnormality, stable compared to prior 77F w/ PMH HTN, GERD p/w chest pain. Chest pain - trop neg x 2, EKG unchanged - atypical symptoms, recent neg stress test -history more consistent with GERD, pain generally happens when lying down - echo done this morning, pending - if echo benign, no further inpatient cardiac workup GERD - on protonix HTN - stable on home meds HLD - on statin
[2017-12-23] MEDS ORDERED: amLODIPine BESYLATE 10 MG TABLET (FP) PO SCH (10:00)
[2017-12-23] MEDS ORDERED: POTASSIUM CHLORIDE TABS 20 MEQ TABLET.ER (FP) PO SCH (10:00)
[2017-12-23] MEDS ORDERED: ASPIRIN 81 MG CHEWABLE TABLETS PO SCH (10:00)
[2017-12-23] MEDS ORDERED: PANTOPRAZOLE 40 MG TABLET (FP) PO SCH (10:00)
[2017-12-23] MEDS ORDERED: RANITIDINE HCL 150 MG TABLET (FP) PO SCH (10:00)
[2017-12-23] MEDS ORDERED: FUROSEMIDE 40 MG TABLET (FP) PO SCH (10:00)
[2017-12-23] MEDS ORDERED: LOSARTAN POTASSIUM 50 MG TABLET (FP) PO SCH (10:00)
[2017-12-23 10:50] LABS: CHOLESTEROL 130 mg/dL (50-200); HDL CHOLESTEROL 55 mg/dL (40-60); TRIGLYCERIDES 116 mg/dL (35-160)
--- NOTE | 2017-12-23 14:57 | ECHO ---
Name: HERNANDEZ RONQUILLO Exam:Adult Echocardiogram Study Date: 12/23/2017 11:16 AM Age: 77 yrs Reason For Study: Chest pain Height: 62 in Weight: 160 lb BSA: 1.7 m2 MMode/2D Measurements & Calculations IVSd: 1.1 cm Ao root diam: 3.1 cm LVIDd: 4.3 cm LA dimension: 3.3 cm LVIDs: 3.2 cm LVPWd: 1.0 cm EDV(Teich): 84.9 ml LAV (MOD-bp): 62.4 ml ESV(Teich): 40.9 ml Doppler Measurements & Calculations MV E max felix: 50.4 cm/sec TR max felix: 268.2 cm/sec MV A max felix: 83.9 cm/sec TR max P.6 mmHg MV E/A: 0.60 MV dec time: 0.18 sec Med Peak E' Felix: 4.0 cm/sec PI Vmax: 124.9 cm/sec Med E/e': 12.5 Lat Peak E' Felix: 4.8 cm/sec Lat E/e': 10.5 Procedure A complete two-dimensional transthoracic echocardiogram was performed (2D, M-mode, Doppler and color flow Doppler). Left Ventricle The left ventricular size, thickness and function are normal. Ejection Fraction = 55%. Left Ventricul ar Filling pattern is normal for age. Right Ventricle The right ventricle is normal in size and function. Atria Normal left and right atrial size and function. Mitral Valve The mitral valve is normal in structure and function. Tricuspid Valve The tricuspid valve is normal in structure and function. There is mild tricuspid regurgitation. Right ventricular systolic pressure is 37 mmhg. Aortic Valve The aortic valve is normal in structure and function. Pulmonic Valve The pulmonic valve is not well seen, but is grossly normal. Great Vessels The aortic root is normal size. Pericardium/Pleura There is no pericardial effusion. There is no pleural effusion. Interpretation Summary The left ventricular size, thickness and function are normal Left Ventricular Filling pattern is normal for age. The right ventricle is normal in size and function. Billy Wellington 12/23/2017 01:58 PM
--- NOTE | 2017-12-23 16:12 | DS ---
Physical Exam: SUBJECTIVE: Patient seen and examined. CP resolved, has intermittent coughing, denies abd pain, n/v. OBJECTIVE: Vital Signs Period Temp Pulse Resp BP Sys/Youngblood Pulse Ox Last 24 Hr 97.5 F-98.1 F 56-67 16-20 115-133/66-80 96-99 PHYSICAL EXAM Neuro: alert, awake, cn 2-12intact Pulm: CTAB CV: s1 s2 rrr no mrg Abd: s nt nd + bs Ext: warm, no le edema Laboratory Results - last 24 hr 12/23/17 12/23/17 12/23/17 01:59 01:59 01:59 WBC 5.7 RBC 4.83 Hgb 11.1 Hct 34.6 MCV 71.7 L MCH 22.9 L MCHC 31.9 L RDW 16.0 H Plt Count 235 MPV 8.1 Absolute Neuts (auto) 3.1 Neutrophils % 54.1 Lymphocytes % 38.2 Monocytes % 5.3 Eosinophils % 1.9 Basophils % 0.5 Nucleated RBC % 0 PT with INR 12.40 INR 1.10 H Sodium 141 Potassium 3.7 Chloride 105 Carbon Dioxide 30 Anion Gap 6 L BUN 14 Creatinine 1.0 Creat Clearance w eGFR 53.76 Random Glucose 91 Calcium 8.8 Phosphorus Magnesium Total Bilirubin 0.2 AST 11 L ALT 12 Alkaline Phosphatase 117 Creatine Kinase 69 Troponin I < 0.02 Total Protein 7.3 Albumin 3.7 Triglycerides Cholesterol Total LDL Cholesterol HDL Cholesterol Lipase 115 12/23/17 12/23/17 12/23/17 06:58 06:58 06:58 WBC 5.0 RBC 4.86 Hgb 11.0 Hct 35.1 MCV 72.2 L MCH 22.6 L MCHC 31.3 L RDW 15.8 H Plt Count 231 MPV 8.8 Absolute Neuts (auto) Neutrophils % Lymphocytes % Monocytes % Eosinophils % Basophils % Nucleated RBC % PT with INR 12.40 INR 1.10 H Sodium 144 Potassium 3.6 Chloride 108 H Carbon Dioxide 26 Anion Gap 10 BUN 12 Creatinine 0.7 Creat Clearance w eGFR > 60 Random Glucose 86 Calcium 8.8 Phosphorus 3.0 Magnesium 2.4 Total Bilirubin AST ALT Alkaline Phosphatase Creatine Kinase Troponin I Total Protein Albumin Triglycerides Cholesterol Total LDL Cholesterol HDL Cholesterol Lipase 12/23/17 12/23/17 08:30 09:55 WBC RBC Hgb Hct MCV MCH MCHC RDW Plt Count MPV Absolute Neuts (auto) Neutrophils % Lymphocytes % Monocytes % Eosinophils % Basophils % Nucleated RBC % PT with INR INR Sodium Potassium Chloride Carbon Dioxide Anion Gap BUN Creatinine Creat Clearance w eGFR Random Glucose Calcium Phosphorus Magnesium Total Bilirubin AST ALT Alkaline Phosphatase Creatine Kinase 56 Troponin I < 0.02 Total Protein Albumin Triglycerides 116 Cholesterol 130 Total LDL Cholesterol 65 HDL Cholesterol 55 Lipase HOSPITAL COURSE: Date of Admission:12/23/17 Date of Discharge: 12/23/17 Minutes to complete discharge: 37 Discharge Summary Reason For Visit: CHEST PAIN ATYPICAL CHEST PAIN Current Active Problems Atypical chest pain (Acute) Chest pain (Acute) Hospital Course: Hospital Course: 77 year old female with a significant PMH of HTN, GERD, back surgery for spinal stenosis, abdominal surgery and arthritis presented with chest pain since bedtime. Patient was sharp, localized in the sternum and epigastric region , nonradiating. Patient denied any alleviating or exacerbating factors. Patient stated she had similar symptoms two days ago. Patient is also complaining of significant left leg swelling compared to the right. She recently had a cardiac stress test which was negative. Plan: Cardiac gruber, trops neg, tele sinus rhythm, CP resolved ECHO here unremarkable PT reported feeling better with protonix Will stop zantac, start protonix Discussed with daughter and pt, pt has hiatal hernia found on previous egd/ colonosopy, advised to follow up with GI also referral enclosed Cardiology, GI. PCP follow up Pt aware and agrees to above plan Condition: Stable - Instructions Diet, Activity, Other Instructions: Please return to the ED for any new, persistent, or worsening symptoms. Follow up with your PCP in 1 week Take home medications as directed, stop zantac, trial protonix Followup with GI doctor for GERD work up, referral enclosed along with follow up with previous GI doctor who preformed your EGD/colonoscopy Referrals: Brett Sotelo MD [Staff Physician] - Maria Fernanda Machado MD [Primary Care Provider] - Chip Oliver MD [Staff Physician] - Disposition: HOME - Home Medications Comprehensive Discharge Medication List: Ambulatory Orders Furosemide [Lasix -] 40 mg PO DAILY 06/10/12 Potassium Chloride [K-Dur -] 20 meq PO DAILY 06/10/12 Simvastatin [Zocor -] 10 mg PO HS 06/10/12 Amlodipine Besylate 5 mg PO DAILY 03/15/16 Aspirin [ASA -] 81 mg PO DAILY 07/05/16 Folic Acid/Multivit,Iron,[place] [One Daily Maximum Tablet] 1 each PO DAILY Metoprolol Succinate [Toprol Xl] 50 mg PO DAILY 07/05/16 Cholecalciferol (Vitamin D3) [Vitamin D-400] 400 unit PO DAILY 07/08/16 Losartan Potassium [Cozaar -] 50 mg PO DAILY 03/25/17 Pantoprazole Sodium [Protonix -] 40 mg PO DAILY #30 tablet.ec 12/23/17 This patient is new to me today: Yes Date on this admission: 12/23/17 Emergency Visit: Yes ED Registration Date: 12/23/17 Care time: The patient presented to the Emergency Department on the above date and was hospitalized for further evaluation of their emergent condition. Critical Care patient: No - Discharge Referral Referred to [facility] Med P.C.: No
[2017-12-23 20:21] VITALS: BP 120/76; PULSE 62; TEMP 98.8
[2017-12-23] MEDS ORDERED: ATORVASTATIN CA 10 MG TABLET (FP) PO SCH (22:00)
== END 2017-12-23 16:20 | disposition home or self-care (01) ==
LOC: JER 00:49 → JERBED 04:40 → UNDOADMOB 04:44 → JERBED 04:44 → J4W 07:25
PROVIDERS: ADMIT Internal Medicine; ATTEND Nurse Practitioner Acute Care
PROC: 3E033GC Introduction of Other Therapeutic Substance into Peripheral Vein, Percutaneous Approach (ICD-10-PCS; principal; 2017-12-23)
DX: R07.89 Other chest pain (principal); I10 Essential (primary) hypertension; E78.5 Hyperlipidemia, unspecified; K21.9 Gastro-esophageal reflux disease without esophagitis; M19.90 Unspecified osteoarthritis, unspecified site; E04.2 Nontoxic multinodular goiter; I51.7 Cardiomegaly; Z79.82 Long term (current) use of aspirin; Z86.73 Personal history of transient ischemic attack (TIA), and cerebral infarction without residual deficits; Z87.442 Personal history of urinary calculi
CPT/HCPCS: 36415; 71045-TC-FY; 80048; 80053; 80061; 82550; 83690; 83721; 83735; 84100; 84484; 85025; 85027; 85610; 93005; 93010; 93306-TC; 93971-TC; 96365; 99285-25; G0378

== ENCOUNTER → 2018-12-07 | Day surgery (SDC) | payer OTHER, BC ==
--- NOTE | 2018-12-08 14:00 | PATH ---
Cytology Non-Gynecological Report Patient Name: HERNANDEZ RONQUILLO [facility]. Rec. #: [id number] /Age/Gender: 1940 (Age: 78) / F Account: [id number] Location: RADIOLOGY INTER Taken: 12/07/2018 Received: 12/07/2018 Reported: 12/08/2018 Physicians: Fabrice Loomis M.D. Specimen(s) Received LEFT LOBE THYROID FNA Clinical History Left thyroid lobe nodule Final Diagnosis THYROID, LEFT, FINE NEEDLE ASPIRATION: SATISFACTORY FOR EVALUATION. BETHESDA CLASS II: BENIGN SMALL FOLLICULAR CELLS, MACROPHAGES, AND COLLOID PRESENT, CONSISTENT WITH A BENIGN FOLLICULAR NODULE. Electronically Signed Nathalie Cox M.D. Gross Description Received are eight direct smears, four of which are air-dried and Diff-Quik stained, and four of which are alcohol fixed and Pap stained. Also received is 30 ml of bloody formalin from which one cellblock is prepared.
== END | disposition home or self-care (01) ==
LOC: JRADIR 09:10
PROVIDERS: ATTEND Internal Medicine Endocrinology, Diabetes & Metabolism
PROC: 0G9G3ZX Drainage of Left Thyroid Gland Lobe, Percutaneous Approach, Diagnostic (ICD-10-PCS; principal; 2018-12-07)
DX: E04.1 Nontoxic single thyroid nodule (principal)
CPT/HCPCS: 76942; 88173; 88305-TC

== ENCOUNTER 2020-12-19 12:16 | Emergency (ER) | payer OTHER, BC ==
[2020-12-19 12:29] VITALS: TEMP 97; BMI 31.1
[2020-12-19] MEDS ORDERED: SODIUM CHLORIDE 0.9% 500 ML INFUS.BAG IV ONE (13:12)
[2020-12-19] MEDS ORDERED: METOCLOPRAMIDE HCL INJECTION 10 MG/2 ML VIAL IVPUSH ONE (13:27)
[2020-12-19] MEDS ORDERED: METOCLOPRAMIDE HCL INJECTION 10 MG/2 ML VIAL ONE (13:33)
[2020-12-19 13:42] LABS: BASO % 0.6 % (0-2.0); EOS % 0.6 % (0-4.5); HEMATOCRIT 37.7 % (32.4-45.2); HEMOGLOBIN 12.1 GM/dL (10.7-15.3); LYMPH % 30.5 % (8-40); MCHC 32.2 g/dl (32.0-36.0); MEAN CELL VOLUME 71.6 fl (80-96); MEAN PLT VOLUME 7.4 fl (7.5-11.1); MONO % 5.8 % (3.8-10.2); NEUT % 62.5 % (42.8-82.8); PLATELET COUNT 225 10^3/uL (134-434); RBC 5.27 M/mm3 (3.60-5.2); RDW 16.4 % (11.6-15.6); WHITE BLOOD COUNT 5.5 K/mm3 (4.0-10.0)
[2020-12-19 13:45] LABS: EPI CELLS 2 /uL (0-25.1); HYALINE CASTS 2 /uL (0-3.1); URINE APPEARANCE CLEAR; URINE BACTERIA 8 /uL (0-1359); URINE BILIRUBIN NEGATIVE (NEGATIVE); URINE COLOR YELLOW; URINE GLUCOSE (UA) NEGATIVE (NEGATIVE); URINE KETONE NEGATIVE (NEGATIVE); URINE LEUK ESTERASE 1+ (NEGATIVE); URINE NITRITE NEGATIVE (NEGATIVE); URINE PROTEIN NEGATIVE (NEGATIVE); URINE RBC 2 /uL (0-23.9); URINE UROBILINOGEN 0.2 mg/dL (0.2-1.0); URINE WBC 7 /uL (0-25.8)
[2020-12-19 14:09] LABS: CHLORIDE 107 mmol/L (98-107); SODIUM 142 mmol/L (136-145)
[2020-12-19 14:11] LABS: CALCIUM 9.4 mg/dL (8.5-10.1)
[2020-12-19 14:12] LABS: BLOOD UREA NITROGEN 16.2 mg/dL (7-18); GLUCOSE,RANDOM 101 mg/dL (74-106)
[2020-12-19 14:15] LABS: CREATININE 1.1 mg/dL (0.55-1.3); SGOT/AST 12 U/L (15-37)
[2020-12-19 14:16] LABS: TOT PROT 7.5 g/dl (6.4-8.2)
[2020-12-19 14:17] LABS: ALK PHOS 108 U/L (45-117)
[2020-12-19 14:20] LABS: ANION GAP 6 MMOL/L (8-16); BILIRUBIN,TOTAL 0.6 mg/dL (0.2-1); CO2 28 mmol/L (21-32); SGPT/ALT 16 U/L (13-61)
[2020-12-19] MEDS ORDERED: ACETAMINOPHEN 1000 MG/100 ML VIAL (NON FORMULARY) IVPB ONE (14:20)
[2020-12-19] MEDS ORDERED: ACETAMINOPHEN INJECTION 100 ML IVPB ONE (14:29)
[2020-12-19 16:10] VITALS: BP 109/64; PULSE 63
== END 2020-12-19 16:10 | disposition home or self-care (01) ==
LOC: JER 12:16
PROC: 3E033GC Introduction of Other Therapeutic Substance into Peripheral Vein, Percutaneous Approach (ICD-10-PCS; principal; 2020-12-19)
DX: R53.1 Weakness (principal)
CPT/HCPCS: 36415; 70450-TC; 71046-TC-FY; 80053; 81003; 82550; 84443; 84484; 85025; 87086; 93005; 93010; 96374; 96375; 99285-25; J0131

== ENCOUNTER → 2022-03-03 | Emergency (ER) | payer OTHER, BC ==
[2022-03-03 07:45] VITALS: BP 127/64; PULSE 76; RESP 18; TEMP 98.6; BMI 29.2
[2022-03-03 10:03] LABS: BASO % 1.2 % (0-2.0); EOS % 1.9 % (0-4.5); HEMATOCRIT 34.1 % (32.4-45.2); HEMOGLOBIN 10.7 GM/dL (10.7-15.3); MCH 22.6 pg (25.7-33.7); MCHC 31.3 g/dl (32.0-36.0); MEAN CELL VOLUME 72.2 fl (80-96); MONO % 6.9 % (3.8-10.2); PLATELET COUNT 227 10^3/uL (134-434); RBC 4.73 M/mm3 (3.60-5.2); RDW 16.2 % (11.6-15.6); WHITE BLOOD COUNT 5.5 K/mm3 (4.0-10.0)
[2022-03-03 10:15] LABS: INR 1.08 (0.83-1.09); PROTHROMBIN TIME (PATIENT) 12.4 SEC (9.7-13.0)
[2022-03-03 10:18] LABS: ACTIVATED PTT 27.4 SECONDS (25.2-36.5)
[2022-03-03 10:23] LABS: ALBUMIN 3.4 g/dl (3.4-5.0)
[2022-03-03 10:28] LABS: BILIRUBIN,TOTAL 0.4 mg/dL (0.2-1); TOT PROT 6.5 g/dl (6.4-8.2)
== END | disposition home or self-care (01) ==
LOC: JER 07:21
DX: K62.5 Hemorrhage of anus and rectum (principal)
CPT/HCPCS: 36415; 80053; 82272; 85025; 85610; 85730; 86850; 86900; 86901; 99283-25

== ENCOUNTER 2023-04-23 16:56 | Inpatient (IN) | payer OTHER, BC ==
[2023-04-23 17:25] VITALS: BMI 29.2
[2023-04-23 20:55] LABS: BASO % 0.5 % (0-2.0); EOS % 1.8 % (0-4.5); HEMATOCRIT 33.6 % (32.4-45.2); HEMOGLOBIN 10.5 GM/dL (10.7-15.3); LYMPH % 37.3 % (8-40); MCH 22.5 pg (25.7-33.7); MCHC 31.3 g/dl (32.0-36.0); MEAN PLT VOLUME 7.8 fl (7.5-11.1); NEUT % 53.4 % (42.8-82.8); PLATELET COUNT 191 10^3/uL (134-434); RBC 4.67 M/mm3 (3.60-5.2); RDW 15.9 % (11.6-15.6); WHITE BLOOD COUNT 6.2 K/mm3 (4.0-10.0)
[2023-04-23 21:03] LABS: INR 1.13 (0.83-1.09); PROTHROMBIN TIME (PATIENT) 13.1 SEC (9.7-13.0)
[2023-04-23 21:13] LABS: POTASSIUM 4.6 mmol/L (3.5-5.1)
[2023-04-23 21:16] LABS: ALBUMIN 3.3 g/dl (3.4-5.0); CALCIUM 9.4 mg/dL (8.5-10.1)
[2023-04-23 21:17] LABS: BLOOD UREA NITROGEN 22.8 mg/dL (7-18)
[2023-04-23 21:18] LABS: CREATININE 1.2 mg/dL (0.55-1.3)
[2023-04-23 21:21] LABS: BILIRUBIN,TOTAL 0.2 mg/dL (0.2-1); TOT PROT 6.4 g/dl (6.4-8.2)
[2023-04-23 21:52] LABS: N-TERMINAL BNP 490.3 pg/ml (5-450)
[2023-04-24] MEDS: SODIUM CHLORIDE 1,000 ML IV SCH (05:30)
[2023-04-24] MEDS ORDERED: HYDROCORTISONE ACETATE 25 MG/SUPP.RECT RC SCH (10:00)
[2023-04-24] MEDS: CHOLECALCIFEROL (VIT D3) 400 UNIT (10 MCG) TABLET PO SCH (11:05)
[2023-04-24] MEDS: VALSARTAN 80 MG TABLET PO SCH (11:05)
[2023-04-24] MEDS: amLODIPine BESYLATE 5 MG TABLET (FP) PO SCH (11:05)
[2023-04-24] MEDS: FUROSEMIDE 40 MG TABLET (FP) PO SCH (11:05)
[2023-04-24] MEDS: PANTOPRAZOLE 40 MG TABLET PO SCH (11:05)
[2023-04-24] MEDS ORDERED: PEG 3350/NA SULF BICARB CL/KCL 4000 ML SOLN.RECON PO ONE (13:00)
[2023-04-24] MEDS ORDERED: BISACODYL 5 MG TABLET.DR (FP) PO ONE (20:00)
[2023-04-24 20:01] LABS: BASO % 0.7 % (0-2.0); EOS % 1.3 % (0-4.5); HEMATOCRIT 31.7 % (32.4-45.2); HEMOGLOBIN 9.9 GM/dL (10.7-15.3); LYMPH % 34.5 % (8-40); MCH 22.4 pg (25.7-33.7); MCH 22.6 pg (25.7-33.7); MCHC 31.2 g/dl (32.0-36.0); MCHC 31.4 g/dl (32.0-36.0); MEAN CELL VOLUME 71.9 fl (80-96); MEAN PLT VOLUME 8.5 fl (7.5-11.1); MEAN PLT VOLUME 8.9 fl (7.5-11.1); MONO % 5.1 % (3.8-10.2); NEUT % 58.4 % (42.8-82.8); PLATELET COUNT 189 10^3/uL (134-434); PLATELET COUNT 200 10^3/uL (134-434); RBC 4.41 M/mm3 (3.60-5.2); RDW 15.4 % (11.6-15.6); RDW 15.5 % (11.6-15.6); WHITE BLOOD COUNT 5.2 K/mm3 (4.0-10.0)
[2023-04-24 20:27] LABS: POTASSIUM 3.5 mmol/L (3.5-5.1)
[2023-04-24 20:30] LABS: ALBUMIN 3.2 g/dl (3.4-5.0); BLOOD UREA NITROGEN 16.1 mg/dL (7-18); CALCIUM 8.6 mg/dL (8.5-10.1)
[2023-04-24 20:35] LABS: TOT PROT 6.2 g/dl (6.4-8.2)
[2023-04-24 21:29] LABS: BILIRUBIN,TOTAL 0.6 mg/dL (0.2-1)
[2023-04-24] MEDS: ATORVASTATIN CA 10 MG TABLET (FP) PO SCH (23:18)
[2023-04-25] MEDS: SODIUM CHLORIDE 1,000 ML IV SCH (08:36)
[2023-04-25] MEDS: FUROSEMIDE 40 MG TABLET (FP) PO SCH (09:16)
[2023-04-25] MEDS: amLODIPine BESYLATE 5 MG TABLET (FP) PO SCH (09:16)
[2023-04-25] MEDS: VALSARTAN 80 MG TABLET PO SCH (09:16)
[2023-04-25] MEDS: PANTOPRAZOLE 40 MG TABLET PO SCH (09:16)
[2023-04-25] MEDS ORDERED: LIDOCAINE VISCOUS 2% ORAL/TOP 15 ML UNIT-DOSE CUP ONE (09:41)
[2023-04-25 10:14] LABS: BASO % 0.7 % (0-2.0); EOS % 1.5 % (0-4.5); HEMATOCRIT 31.1 % (32.4-45.2); HEMOGLOBIN 9.9 GM/dL (10.7-15.3); LYMPH % 32.8 % (8-40); MCH 22.9 pg (25.7-33.7); MCHC 31.9 g/dl (32.0-36.0); MEAN CELL VOLUME 71.7 fl (80-96); MEAN PLT VOLUME 8.6 fl (7.5-11.1); MONO % 5.4 % (3.8-10.2); NEUT % 59.6 % (42.8-82.8); PLATELET COUNT 192 10^3/uL (134-434); RBC 4.33 M/mm3 (3.60-5.2); RDW 15.5 % (11.6-15.6); WHITE BLOOD COUNT 4.6 K/mm3 (4.0-10.0)
[2023-04-25 10:20] LABS: INR 1.17 (0.83-1.09); PROTHROMBIN TIME (PATIENT) 13.6 SEC (9.7-13.0)
[2023-04-25 10:52] LABS: POTASSIUM 3.4 mmol/L (3.5-5.1)
[2023-04-25 10:56] LABS: CALCIUM 8.7 mg/dL (8.5-10.1)
[2023-04-25 10:57] LABS: BLOOD UREA NITROGEN 11.2 mg/dL (7-18)
[2023-04-25 10:59] LABS: CREATININE 0.7 mg/dL (0.55-1.3)
[2023-04-25] MEDS: CHOLECALCIFEROL (VIT D3) 400 UNIT (10 MCG) TABLET PO SCH (11:12)
[2023-04-25] MEDS: ATORVASTATIN CA 10 MG TABLET (FP) PO SCH (21:12)
[2023-04-26 06:47] VITALS: BP 124/59; PULSE 66; TEMP 98.1
[2023-04-26 08:11] VITALS: RESP 16
[2023-04-26] MEDS: VALSARTAN 80 MG TABLET PO SCH (09:47)
[2023-04-26] MEDS: PANTOPRAZOLE 40 MG TABLET PO SCH (09:47)
[2023-04-26] MEDS: amLODIPine BESYLATE 5 MG TABLET (FP) PO SCH (09:47)
[2023-04-26] MEDS: FUROSEMIDE 40 MG TABLET (FP) PO SCH (09:47)
[2023-04-26] MEDS: CHOLECALCIFEROL (VIT D3) 400 UNIT (10 MCG) TABLET PO SCH (09:48)
[2023-04-26] MEDS ORDERED: ASPIRIN 81 MG CHEWABLE TABLETS PO SCH (10:00)
== END 2023-04-26 13:14 | disposition home or self-care (01) | DRG 395 ==
LOC: JER 16:56 → JERBED 04-24 01:04 → J5S 04-24 18:47 → OBSVTOIN 04-25 09:56
PROVIDERS: ADMIT Internal Medicine; ATTEND Internal Medicine
PROC: 0DJD8ZZ Inspection of Lower Intestinal Tract, Via Natural or Artificial Opening Endoscopic (ICD-10-PCS; principal; 2023-04-25 08:30)
DX: K64.8 Other hemorrhoids (principal); I10 Essential (primary) hypertension; K22.2 Esophageal obstruction; K76.89 Other specified diseases of liver; E78.5 Hyperlipidemia, unspecified; K21.9 Gastro-esophageal reflux disease without esophagitis; E04.2 Nontoxic multinodular goiter; K57.90 Diverticulosis of intestine, part unspecified, without perforation or abscess without bleeding; K44.9 Diaphragmatic hernia without obstruction or gangrene; N28.89 Other specified disorders of kidney and ureter; Z86.73 Personal history of transient ischemic attack (TIA), and cerebral infarction without residual deficits
CPT/HCPCS: 36415; 74177-TC; 80048; 80053; 82272; 83880; 84484; 85025; 85027; 85610; 85730; 86850; 86900; 86901; 93005; 93010; 99285-25; G0378; Q9967